=== PATIENT | male | born 1930 | race Caucasian/White ===

== ENCOUNTER 2018-08-27 14:26 | Inpatient (IN) ==
[2018-08-28] MEDS ORDERED: NON-FORMULARY MEDICATION 1 EACH EACH (Oxygen [Oxygen] 1 EACH) SCH (03:15)
[2018-08-28] MEDS: Aspirin Enteric Coated 81 MG Tablet PO SCH (08:38)
[2018-08-28] MEDS: Metoprolol XL (24 HR) Succ 25 MG TAB.ER.24H PO SCH (08:38)
[2018-08-28] MEDS: amLODIPine 5 MG TABLET PO SCH (08:38)
[2018-08-28] MEDS: *HR* Heparin 5,000 UNIT/ML VIAL SQ SCH (08:38)
[2018-08-28] MEDS: Ipratropium/Albuterol Neb 3 ML IH SCH ×3 (08:38→18:13)
--- NOTE | 2018-08-28 11:09 | Internal Med History&Physical ---
Date of Encounter: 08/29/18 Time of Encounter: 11:30 Assessment and Plan (1) CVA (cerebral vascular accident) Current visit: Yes Status: Acute left sided residual weakness and apraxic speech fall risk deconditioned needs PT OT speech therapies Qualifiers: CVA mechanism: unspecified Qualified Code(s): I63.9 - Cerebral infarction, unspecified (2) Hypertension Current visit: Yes Status: Chronic stable continue current medications continue to monitor Qualifiers: Hypertension type: essential hypertension Qualified Code(s): I10 - Essential (primary) hypertension Internal Medicine - H&P: HPI Admitted From: Intrahospital Transfer History of present illness: Mr. Campos is a 88 year old male who is transferred from [facility] for rehabilitation. He has deconditioning. He is status post CVA left-sided. He has weakness and mild speech apraxia. He is on 2-3 L nasal cannula oxygen. He is a fall risk. He was originally at home prior to his stroke. He denies headache or chest pain. He is not eating well but it is also not vomiting. He does have some slow urine stream. He is and has 2 sons. Past Med Surg Social Fam HX - Past Medical History Medical history: arthritis, cardiomyopathy, CHF, COPD, coronary artery disease, CVA, GERD, hypertension, myocardial infarction, renal disease, TIA Additional medical history: anemia, BPH, hital hernia Psychiatric history: no psych history - Past Surgical History Surgical History: non-contributory Additional surgical history: prostate surgery - Social History Smoking Status: Unknown if ever smoked Smokeless Tobacco Status: No Alcohol use: unknown Drug use: unknown Internal Medicine - H&P: Meds Amlodipine Besylate 5 mg PO DAILY 08/28/18 [History] Aspirin Enteric Coated [Aspirin EC] 81 mg PO DAILY 08/28/18 [History] Atorvastatin Calcium [Lipitor] 20 mg PO DAILY 08/28/18 [History] Ipratropium/Albuterol Neb [Duoneb] 3 ml IH Q6HR 08/28/18 [History] Metoprolol Succinate [Toprol Xl] 100 mg PO DAILY 08/28/18 [History] Oxygen 1 each .ROUTE CONT 08/28/18 [History] Pantoprazole Sodium [Protonix] 40 mg PO DAILY 08/28/18 [History] Allergy/AdvReac Type Severity Reaction Status Date / Time Penicillins [PCN] AdvReac Rash Verified 08/27/18 22:24 Sulfa (Sulfonamide AdvReac Rash Verified 08/27/18 22:24 Antibiotics) All Systems PM: A 10-system review of systems was performed and is negative for pertinent findings except as documented above in the HPI. - Constitutional Constitutional: as per HPI - Constitutional Vitals: Temp Pulse Resp BP Pulse Ox 97.5 F L 95 16 138/82 95 08/28/18 08:00 08/28/18 08:00 08/28/18 08:00 08/28/18 08:00 08/28/18 08:00 General appearance: Present: cooperative - Head Head exam: Present: atraumatic - Eye Eye exam: Present: PERRL - ENT ENT exam: Present: mucous membranes dry - Neck Neck exam general surgery: Present: normal inspection - Respiratory Additional comments: clear bilateral - Cardiovascular Additional comments: normal tones distant - GI/Abdominal Additional comments: soft NT slgiht distended - Extremities Exam Extremities exam: Present: normal inspection
[2018-08-28] MEDS: Multivit/Ca/Min/Fe/FA 1 TAB TABLET PO SCH (12:09)
[2018-08-29] MEDS: Ipratropium/Albuterol Neb 3 ML IH SCH ×5 (00:20→23:45)
[2018-08-29] MEDS: Multivit/Ca/Min/Fe/FA 1 TAB TABLET PO SCH (09:56)
[2018-08-29] MEDS: Metoprolol XL (24 HR) Succ 25 MG TAB.ER.24H PO SCH (09:56)
[2018-08-29] MEDS: Aspirin Enteric Coated 81 MG Tablet PO SCH (09:57)
[2018-08-29] MEDS: amLODIPine 5 MG TABLET PO SCH (09:57)
[2018-08-29] MEDS: *HR* Heparin 5,000 UNIT/ML VIAL SQ SCH (09:57)
--- NOTE | 2018-08-29 14:56 | Internal Med Progress Note ---
Date of Encounter: 08/29/18 Time of Encounter: 14:50 - Assessment and plan (1) CVA (cerebral vascular accident) Current Visit: Yes Status: Acute Qualifiers: CVA mechanism: unspecified Qualified Code(s): I63.9 - Cerebral infarction, unspecified (2) Hypertension Current Visit: Yes Status: Chronic Qualifiers: Hypertension type: essential hypertension Qualified Code(s): I10 - Essential (primary) hypertension - Subjective Interval history: Assessment and Plan (1) CVA (cerebral vascular accident) Current visit: Yes Status: Acute left sided residual weakness and apraxic speech fall risk deconditioned ordered PT OT speech therapies wean nasal canula oxygen as tolerated monitor progress Qualifiers: CVA mechanism: unspecified Qualified Code(s): I63.9 - Cerebral infarction, unspecified (2) Hypertension Current visit: Yes Status: Chronic stable continue current medications amlodipine and metoprolol continue to monitor Qualifiers: Hypertension type: essential hypertension Qualified Code(s): I10 - Essential (primary) hypertension Admitted From: Intrahospital Transfer History of present illness: Mr. Campos is a 88 year old male who is transferred from [facility] for rehabilitation. He has deconditioning and diffuculty with ADL. He is status post CVA left-sided. He has weakness and mild speech apraxia. He is a fall risk. He was originally at home prior to his stroke and is . He denies headache or chest pain. He is not eating well but it is also not vomiting. He does have some slow urine stream. MEDS Amlodipine Besylate 5 mg PO DAILY 08/28/18 [History] Aspirin Enteric Coated [Aspirin EC] 81 mg PO DAILY 08/28/18 [History] Atorvastatin Calcium [Lipitor] 20 mg PO DAILY 08/28/18 [History] Ipratropium/Albuterol Neb [Duoneb] 3 ml IH Q6HR 08/28/18 [History] Metoprolol Succinate [Toprol Xl] 100 mg PO DAILY 08/28/18 [History] Oxygen 1 each .ROUTE CONT 08/28/18 [History] Pantoprazole Sodium [Protonix] 40 mg PO DAILY 08/28/18 [History] Allergy/AdvReac Type Severity Reaction Status Date / Time Penicillins [PCN] AdvReac Rash Verified 08/27/18 22:24 Sulfa (Sulfonamide AdvReac Rash Verified 08/27/18 22:24 Antibiotics) - Constitutional Vitals: General appearance: Present: cooperative and calm - Head Head exam: Present: atraumatic - Eye Eye exam: Present: PERRL - ENT ENT exam: Present: mucous membranes dry - Neck Neck exam general surgery: Present: normal inspection - Respiratory Additional comments: clear bilateral - Cardiovascular Additional comments: normal tones distant - GI/Abdominal Additional comments: soft NT slgiht distended - Extremities Exam/neuro Extremities exam: Present: normal inspection weakness 3/5 - Constitutional Vitals: Temp Pulse Resp BP Pulse Ox 97.7 F 61 16 162/79 96 08/29/18 07:00 08/29/18 07:00 08/29/18 07:00 08/29/18 07:00 08/29/18 10:45 General appearance: Present: cooperative Consult Discharge Plan - Plan Referrals: Amado Patton MD [Primary Care Provider] -
[2018-08-30] MEDS: Ipratropium/Albuterol Neb 3 ML IH SCH ×4 (05:51→23:58)
[2018-08-30 06:40] LABS: Basophils # 0.1 K/mcL (0.0-0.2); Basophils % 0.6 %; Eosinophils # 0.5 K/mcL (0.0-0.6); Eosinophils % 5.9 %; Hematocrit 40.4 % (37.5-50.1); Hemoglobin 13.2 g/dL (12.9-16.9); Immature Granulocytes % 0.1 % (0-4); Lymphocytes % 45.2 %; Mean Corpuscular HGB Conc 32.7 g/dL (31.6-35.5); Mean Corpuscular Volume 98.1 fL (83.0-100.0); Monocytes # 0.6 K/mcL (0.0-1.3); Monocytes % 6.7 %; Neutrophils # 3.6 K/mcL (1.6-8.9); Platelet Count 230 K/mcL (140-400); Red Blood Count 4.12 M/mcL (4.19-5.50); Red Cell Distribution Width 13.4 % (11.5-14.5); Segmented Neutrophils % 41.5 %
[2018-08-30 06:50] LABS: Calcium 9.4 mg/dL (8.6-10.3); Potassium 4.4 mEq/L (3.5-5.1)
[2018-08-30] MEDS: amLODIPine 5 MG TABLET PO SCH (08:35)
[2018-08-30] MEDS: Metoprolol XL (24 HR) Succ 25 MG TAB.ER.24H PO SCH (08:37)
[2018-08-30] MEDS: Aspirin Enteric Coated 81 MG Tablet PO SCH (08:37)
[2018-08-30] MEDS: Multivit/Ca/Min/Fe/FA 1 TAB TABLET PO SCH (08:37)
[2018-08-30] MEDS: *HR* Heparin 5,000 UNIT/ML VIAL SQ SCH ×2 (08:40→20:59)
--- NOTE | 2018-08-30 13:49 | Internal Med Progress Note ---
Addendum entered and electronically signed by Moe Scott MD 08/31/18 15:12: I have personally performed a face to face evaluation on this patient. I have r eviewed and agree with the care plan. History and Exam by me shows: The patient was evaluated by me yesterday but the note was not complete. This documentation is being completed today for that reason. Discussed care with other providers and/or nursing. Patient has no complaint of chest discomfort, dyspnea, orthopnea, palpitations, nausea or vomiting, constipation or diarrhea, other changes in bowel habits, difficulty with urination, rash or itching, or other new complaints, except as mentioned above. Review of systems is otherwise negative. Examination: (Except as mentioned above): General: In no apparent distress. Alert and oriented 3. Nondiaphoretic. Head: Atraumatic and normocephalic. Respiratory: No use of accessory muscles. Lungs are clear throughout. Normal airflow. Cardiovascular: Regular rate and rhythm without murmur appreciated. Abdomen: Bowel sounds are normal. No hepatosplenomegaly mass or tenderness appreciated. Obese and therefore difficult to palpate deeply. Extremities: No cyanosis clubbing or edema. Neurologically, he has minimal ataxia of right upper extremity and right lower extremity. His speech tends to trail off at the end of the sentence but is otherwise easily understandable. He has no definite receptive aphasia. There is no facial droop, notable. Skin: Warm and non-diaphoretic with no new lesions noted. Original Note: Date of Encounter: 08/30/18 Time of Encounter: 13:44 - Assessment and plan (1) CVA (cerebral vascular accident) Current Visit: Yes Status: Acute Assessment and plan: Continue PT, OT, speech therapy. Will follow progress. No new neurological deficits at this time. Continue current medication. Follow up with neurologist as scheduled. Qualifiers: CVA mechanism: unspecified Qualified Code(s): I63.9 - Cerebral infarction, unspecified (2) Hypertension Current Visit: Yes Status: Chronic Assessment and plan: Controlled with current medication. Monitor blood pressure. Qualifiers: Hypertension type: essential hypertension Qualified Code(s): I10 - Essential (primary) hypertension - Time Spent With Patient less than 15 minutes - Subjective Interval history: Participating well with therapy. Denies any pain, fever, chills, nausea vomiting or diarrhea. Denies shortness of breath or chest pain. Patient did ambulate 50 feet with contact guard assist with therapy. Continues to be on O2 at 3 L, maintaining saturations greater than 92%. Patient does use oxygen as needed at home. Speech becomes worse and more difficult to understand has patient gets more fatigued. Patient does live home alone. Family lives nearby. Was driving prior to admission. Lost his this past January. - Constitutional Vitals: Temp Pulse Resp BP Pulse Ox 98.5 F 65 16 163/83 94 08/30/18 06:57 08/30/18 06:57 08/30/18 06:57 08/30/18 06:57 08/30/18 10:00 General appearance: Present: cooperative, A&O X 3, pleasant, no acute distress, answers questions appropriately Exam: garbles speech off and on. - Head Head exam: Present: atraumatic, normocephalic - Eye Eye exam: Present: PERRL, conjuntiva pink, sclera anicteric Pupils: Present: PERRL - Neck Neck exam general surgery: Present: supple, trachea midline. Absent: lymphadenopathy - Respiratory Respiratory exam: Present: CTAB. Absent: accessory muscle use, rales, rhonchi, wheezes - Cardiovascular Cardiovascular exam: Present: RRR, +S1, +S2. Absent: diastolic murmur, gallop, rubs, systolic murmur - GI/Abdominal GI/Abdominal exam: Present: normal bowel sounds, soft, no peritoneal signs. Absent: distended, tenderness - Extremities Exam Extremities exam: Present: warm, radial pulses palpable and symmetrical. Absent: calf tenderness, cyanotic, pedal edema Additional comments: left sided weakness. - Neurological Exam Neurological exam: Present: CN II-XII intact, oriented X3, no focal deficits. Absent: pronater drift, facial droop, speech deficit - Skin Skin exam: Present: dry, intact Internal Medicine: Result - Labs CBC & Chem 7: 08/30/18 06:20 08/30/18 06:20 Labs: Short CBC 08/30/18 Range/Units 06:20 WBC 8.8 (4.3-11.1) K/mcL Hgb 13.2 (12.9-16.9) g/dL Hct 40.4 (37.5-50.1) % Plt Count 230 (140-400) K/mcL Neutrophils # 3.6 (1.6-8.9) K/mcL BMP 08/30/18 06:20 Sodium 141 Potassium 4.4 Chloride 102 Carbon Dioxide 32 H BUN 27 H Creatinine 1.40 H Glucose 98 Calcium 9.4 Consult Discharge Plan - Plan Referrals: Amado Patton MD [Primary Care Provider] -
[2018-08-31] MEDS: *HR* Heparin 5,000 UNIT/ML VIAL SQ SCH ×2 (05:36→19:43)
[2018-08-31] MEDS: Ipratropium/Albuterol Neb 3 ML IH SCH ×3 (05:37→17:55)
--- NOTE | 2018-08-31 10:46 | Internal Med Progress Note ---
Addendum entered and electronically signed by Moe Scott MD 08/31/18 15:13: I have personally performed a face to face evaluation on this patient. I have r eviewed and agree with the care plan. History and Exam by me shows: Patient is without complaint except tired with therapy. He feels that there is nothing else that we can do to make him more comfortable here. He states that he has moved his bowels. Discussed care with other providers and/or nursing. Patient has no complaint of chest discomfort, dyspnea, orthopnea, palpitations, nausea or vomiting, constipation or diarrhea, other changes in bowel habits, difficulty with urination, rash or itching, or other new complaints, except as mentioned above. Review of systems is otherwise negative. Examination: (Except as mentioned above): General: In no apparent distress. Alert and oriented 3. Nondiaphoretic. Head: Atraumatic and normocephalic. Respiratory: No use of accessory muscles. Lungs are clear throughout. Normal airflow. Cardiovascular: Regular rate and rhythm without murmur appreciated. Abdomen: Bowel sounds are normal. No hepatosplenomegaly mass or tenderness appr eciated. Obese and therefore difficult to palpate deeply. Patient is examined upright in chair and this also limits exam. Extremities: No cyanosis clubbing or edema. Skin: Warm and non-diaphoretic with no new lesions noted. Original Note: Date of Encounter: 08/31/18 Time of Encounter: 10:44 - Assessment and plan (1) CVA (cerebral vascular accident) Current Visit: Yes Status: Acute Assessment and plan: Continue PT, OT, speech therapy. Will follow progress. No new neurological deficits at this time. Continue current medication. Follow up with neurologist as scheduled. Qualifiers: CVA mechanism: unspecified Qualified Code(s): I63.9 - Cerebral infarction, unspecified (2) Hypertension Current Visit: Yes Status: Chronic Assessment and plan: Controlled with current medication. Monitor blood pressure. Qualifiers: Hypertension type: essential hypertension Qualified Code(s): I10 - Essential (primary) hypertension - Time Spent With Patient less than 15 minutes - Subjective Interval history: Sitting up and chair. Participating well with therapy. States he slept well last night. Denies any pain, fever, chills, nausea vomiting or diarrhea. Denies shortness of breath or chest pain. Patient did ambulate 50 feet with contact guard assist with therapy. Continues to be on O2 at 3 L, maintaining saturations greater than 92%. Patient does use oxygen as needed at home. Speech becomes worse and more difficult to understand has patient gets more fatigued. Patient does live home alone. Family lives nearby. Was driving prior to admission. Lost his this past January. - Constitutional Vitals: Temp Pulse Resp BP Pulse Ox 98.2 F 62 16 146/70 90 08/31/18 07:00 08/31/18 07:00 08/31/18 07:00 08/31/18 07:00 08/31/18 07:00 General appearance: Present: cooperative, A&O X 3, pleasant, no acute distress, answers questions appropriately - Head Head exam: Present: atraumatic, normocephalic - Eye Eye exam: Present: PERRL, conjuntiva pink, sclera anicteric Pupils: Present: PERRL - Neck Neck exam general surgery: Present: supple, trachea midline. Absent: lymphaden opathy - Respiratory Respiratory exam: Present: CTAB. Absent: accessory muscle use, rales, rhonchi, wheezes - Cardiovascular Cardiovascular exam: Present: RRR, +S1, +S2. Absent: diastolic murmur, gallop, rubs, systolic murmur - GI/Abdominal GI/Abdominal exam: Present: normal bowel sounds, soft, no peritoneal signs. Absent: distended, tenderness - Extremities Exam Extremities exam: Present: warm, radial pulses palpable and symmetrical. A bsent: calf tenderness, cyanotic, pedal edema Additional comments: Left-sided weakness - Neurological Exam Neurological exam: Present: CN II-XII intact, oriented X3, no focal deficits. Absent: pronater drift, facial droop, speech deficit - Skin Skin exam: Present: dry, intact Internal Medicine: Result - Labs CBC & Chem 7: 08/30/18 06:20 08/30/18 06:20 Consult Discharge Plan - Plan Referrals: Amado Patton MD [Primary Care Provider] -
[2018-08-31] MEDS: Metoprolol XL (24 HR) Succ 25 MG TAB.ER.24H PO SCH (11:02)
[2018-08-31] MEDS: Multivit/Ca/Min/Fe/FA 1 TAB TABLET PO SCH (11:02)
[2018-08-31] MEDS: Aspirin Enteric Coated 81 MG Tablet PO SCH (11:02)
[2018-08-31] MEDS: amLODIPine 5 MG TABLET PO SCH (11:02)
[2018-09-01] MEDS: Ipratropium/Albuterol Neb 3 ML IH SCH ×4 (01:18→18:32)
[2018-09-01] MEDS: *HR* Heparin 5,000 UNIT/ML VIAL SQ SCH ×2 (04:50→18:32)
[2018-09-01 08:02] LABS: BUN/Creatinine Ratio 20 (6-26); Blood Urea Nitrogen 26 mg/dL (8-23); Calcium 9.1 mg/dL (8.6-10.3); Carbon Dioxide 32 mEq/L (23-29); Chloride 101 mEq/L (98-107); Glucose 96 mg/dL (70-105); Osmolality,Calculated 291 (280-300); Potassium 4.3 mEq/L (3.5-5.1); Sodium 138 mEq/L (136-145); eGFR For Non-African Americans 52 (> 60)
--- NOTE | 2018-09-01 10:06 | Internal Med Progress Note ---
Addendum entered and electronically signed by Moe Scott MD 09/01/18 11:45: I have personally performed a face to face evaluation on this patient. I have r eviewed and agree with the care plan. History and Exam by me shows: Patient feels he is doing well in this is confirmed with therapies. He has been moving his bowels, has no urinary complaints, his breathing is at his baseline and he is otherwise doing well. He is still a flat affect and he was seen by psychologist, as noted. Discussed care with other providers and/or nursing. Patient has no complaint of chest discomfort, dyspnea, orthopnea, palpitations, nausea or vomiting, constipation or diarrhea, other changes in bowel habits, difficulty with urination, rash or itching, or other new complaints, except as mentioned above. Review of systems is otherwise negative. Examination: (Except as mentioned above): General: In no apparent distress. Alert and oriented 3. Nondiaphoretic. He is wearing oxygen at 2 L by nasal cannula. Head: Atraumatic and normocephalic. Respiratory: No use of accessory muscles. Lungs are clear throughout. Normal airflow. Cardiovascular: Regular rate and rhythm without murmur appreciated. Abdomen: Bowel sounds are normal. No hepatosplenomegaly mass or tenderness appreciated. Obese and therefore difficult to palpate deeply. Patient is examin ed upright in chair and this also limits exam. Extremities: No cyanosis clubbing or edema. Skin: Warm and non-diaphoretic with no new lesions noted. Original Note: Date of Encounter: 09/01/18 Time of Encounter: 10:04 - Assessment and plan (1) CVA (cerebral vascular accident) Current Visit: Yes Status: Acute Assessment and plan: Continue PT, OT, speech therapy. Will follow progress. No new neurological deficits at this time. Continue current medication. Follow up with neurologist as scheduled. Qualifiers: CVA mechanism: unspecified Qualified Code(s): I63.9 - Cerebral infarction, unspecified (2) Hypertension Current Visit: Yes Status: Chronic Assessment and plan: Controlled with current medication. Monitor blood pressure. Qualifiers: Hypertension type: essential hypertension Qualified Code(s): I10 - Essential (primary) hypertension - Time Spent With Patient less than 15 minutes - Subjective Interval history: Participating well with therapy. States he slept well last night. c/o off and on Left hip pain, states he has had this for several years and has been told he is in need of a hip replacement. Denies fever, chills, nausea vomiting or diarrhea. Denies shortness of breath or chest pain. Trying to wean oxygen down. Currently maintaining sets greater than 92% at 1 L per nasal cannula. Patient does use oxygen as needed at home. Speech becomes worse and more difficult to understand has patient gets more fatigued. Patient does live home alone. Family lives nearby. Was driving prior to admission. Lost his this past January. - Constitutional Vitals: Temp Pulse Resp BP Pulse Ox 97.4 F L 62 14 182/76 91 09/01/18 07:58 09/01/18 07:58 09/01/18 07:58 09/01/18 07:58 09/01/18 07:58 General appearance: Present: cooperative, A&O X 3, pleasant, no acute distress, answers questions appropriately Exam: garbled speech off and on. - Head Head exam: Present: atraumatic, normocephalic - Eye Eye exam: Present: PERRL, conjuntiva pink, sclera anicteric Pupils: Present: PERRL - Neck Neck exam general surgery: Present: supple, trachea midline. Absent: lymphadenopathy - Respiratory Respiratory exam: Present: CTAB. Absent: accessory muscle use, rales, rhonchi, wheezes - Cardiovascular Cardiovascular exam: Present: RRR, +S1, +S2. Absent: diastolic murmur, gallop, rubs, systolic murmur - GI/Abdominal GI/Abdominal exam: Present: normal bowel sounds, soft, no peritoneal signs. Absent: distended, tenderness - Extremities Exam Extremities exam: Present: warm, radial pulses palpable and symmetrical. Absent: calf tenderness, cyanotic, pedal edema Additional comments: slight weakness LLE. - Neurological Exam Neurological exam: Present: CN II-XII intact, oriented X3, no focal deficits. Absent: pronater drift, facial droop, speech deficit - Skin Skin exam: Present: dry, intact Internal Medicine: Result - Labs CBC & Chem 7: 08/30/18 06:20 09/01/18 07:13 Labs: BMP 09/01/18 07:13 Sodium 138 Potassium 4.3 Chloride 101 Carbon Dioxide 32 H BUN 26 H Creatinine 1.30 Glucose 96 Calcium 9.1 Consult Discharge Plan - Plan Referrals: Amado Patton MD [Primary Care Provider] -
[2018-09-01] MEDS: Metoprolol XL (24 HR) Succ 25 MG TAB.ER.24H PO SCH (11:04)
[2018-09-01] MEDS: amLODIPine 5 MG TABLET PO SCH (11:05)
[2018-09-01] MEDS: Multivit/Ca/Min/Fe/FA 1 TAB TABLET PO SCH (11:05)
[2018-09-01] MEDS: Aspirin Enteric Coated 81 MG Tablet PO SCH (11:05)
--- NOTE | 2018-09-01 11:30 | Psychological Evaluation ---
Date of Encounter: 09/01/18 Time of Encounter: 10:20 History of Present Illness History of present illness: Mr. Campos is a 88 year old male who is transferred from [facility] for rehabilitation. He has deconditioning. He is status post CVA left-sided. He has weakness and mild speech dyspraxia. He is on 2-3 L nasal cannula oxygen. He is a fall risk. He was originally at home prior to his stroke. Past Medical History - Psychiatric History Psychiatric history: Reports: no psych history Home Medications and Allergies Amlodipine Besylate 5 mg PO DAILY 08/28/18 [History] Aspirin Enteric Coated [Aspirin EC] 81 mg PO DAILY 08/28/18 [History] Atorvastatin Calcium [Lipitor] 20 mg PO DAILY 08/28/18 [History] Ipratropium/Albuterol Neb [Duoneb] 3 ml IH Q6HR 08/28/18 [History] Metoprolol Succinate [Toprol Xl] 100 mg PO DAILY 08/28/18 [History] Oxygen 1 each .ROUTE CONT 08/28/18 [History] Pantoprazole Sodium [Protonix] 40 mg PO DAILY 08/28/18 [History] Allergy/AdvReac Type Severity Reaction Status Date / Time Penicillins [PCN] AdvReac Rash Verified 08/27/18 22:24 Sulfa (Sulfonamide AdvReac Rash Verified 08/27/18 22:24 Antibiotics) Social History - Social History Social History: Recent - January 2018 after 67 years of marriage. 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 Sons and grandchildren live close by and are in/out of his home. - Tobacco Use Smoking Status: Never smoker - Alcohol Use Alcohol Use: rarely - Drug Use Drug Use: none Cognitive/Emotional Assessment - Cognitive Ability Level of Alertness: Alert Orientation: Person, Place, Month Ability to Follow Directions: Fair Speech Pattern: Rambling, Mumbled Thought Process: Slowed Thinking Additional Findings: Pt required cuing throughout to continue to engage and attempt requests. 3/3 words after repetition and o/3 after 5 min even with category cuing. 4 digits forward and none backward. Knew president but not past pres. or gov. Not able to perform serial 3's - stating "I'm not very good at mathematics". Insight and jugment are limited. - Emotional Status Mood Description: Depressed Affect Description: Flat Coping Ability: Unsure about ability to cope Assessment & Plan - Prognosis Prognosis: Fair - Treatment Plan Treatment Plan/Recommendations: No further treatment as outpatient discussed evaluating anti-depressant with Jocelyne. Treatment Frequency: none Procedures - Participants Therapy Participant: Patient - Session Time Session Start Time: 10:20 Session Stop Time: 10:50
[2018-09-02] MEDS: Ipratropium/Albuterol Neb 3 ML IH SCH ×4 (01:05→18:18)
[2018-09-02] MEDS: *HR* Heparin 5,000 UNIT/ML VIAL SQ SCH ×2 (05:58→18:18)
[2018-09-02] MEDS: amLODIPine 5 MG TABLET PO SCH (08:18)
[2018-09-02] MEDS: Multivit/Ca/Min/Fe/FA 1 TAB TABLET PO SCH (08:18)
[2018-09-02] MEDS: Metoprolol XL (24 HR) Succ 25 MG TAB.ER.24H PO SCH (08:18)
[2018-09-02] MEDS: Aspirin Enteric Coated 81 MG Tablet PO SCH (08:18)
--- NOTE | 2018-09-02 11:24 | Internal Med Progress Note ---
Date of Encounter: 09/02/18 Time of Encounter: :18 - Assessment and plan (1) CVA (cerebral vascular accident) Current Visit: Yes Status: Acute Assessment and plan: He continues to improve and is doing well with therapy. Plan is discharge to home when appropriate, per therapies. Qualifiers: CVA mechanism: unspecified Qualified Code(s): I63.9 - Cerebral infarction, unspecified (2) Hypertension Current Visit: Yes Status: Chronic Assessment and plan: Marginally controlled will continue current regimen. Qualifiers: Hypertension type: essential hypertension Qualified Code(s): I10 - Essential (primary) hypertension (3) COPD (chronic obstructive pulmonary disease) Current Visit: Yes Status: Acute Assessment and plan: This is stable per patient and clinically. Patient is oxygen dependent. Qualifiers: COPD type: emphysema Emphysema type: unspecified Qualified Code(s): J43.9 - Emphysema, unspecified - Subjective Interval history: Patient is without complaint. He is tired with therapy but pleased with his progress. He denies other issues. He states that his bowels or bladder or movi ng well. Patient has no complaint of chest discomfort, dyspnea, orthopnea, palpitations, nausea or vomiting, constipation or diarrhea, other changes in bowel habits, difficulty with urination, rash or itching, or other new complaints, except as mentioned above. Review of systems is otherwise negative. I discussed management of her care with nursing staff. - Constitutional Vitals: Temp Pulse Resp BP Pulse Ox 98.1 F 59 15 136/69 91 09/02/18 07:00 09/02/18 07:00 09/02/18 07:00 09/02/18 07:00 09/02/18 07:00 Exam: Examination: (Except as mentioned above): General: In no apparent distress. Alert and oriented 3. Nondiaphoretic. On oxygen by 2 L nasal cannula. Head: Atraumatic and normocephalic. Respiratory: No use of accessory muscles. Lungs are clear throughout. Normal airflow. Cardiovascular: Regular rate and rhythm without murmur appreciated. Abdomen: Bowel sounds are normal. No hepatosplenomegaly mass or tenderness appreciated. Obese and therefore difficult to palpate deeply. Extremities: No cyanosis clubbing or edema. Skin: Warm and non-diaphoretic with no new lesions noted. Internal Medicine: Result - Labs CBC & Chem 7: 08/30/18 06:20 09/01/18 07:13 Consult Discharge Plan - Plan Referrals: Amado Patton MD [Primary Care Provider] -
[2018-09-03] MEDS: Ipratropium/Albuterol Neb 3 ML IH SCH ×6 (00:12→23:27)
[2018-09-03] MEDS: *HR* Heparin 5,000 UNIT/ML VIAL SQ SCH ×2 (05:40→17:02)
--- NOTE | 2018-09-03 07:44 | Internal Med Progress Note ---
Addendum entered and electronically signed by Moe Scott MD 09/03/18 12:19: I have personally performed a face to face evaluation on this patient. I have r eviewed and agree with the care plan. History and Exam by me shows: Patient had a large bowel movement last night and is otherwise without complaint. He is eating well, pleased that his diet has been advanced, and has no dyspnea, even without oxygen. He is pleased with his therapy. Discussed care with other providers and/or nursing. Patient has no complaint of chest discomfort, dyspnea, orthopnea, palpitations, nausea or vomiting, constipation or diarrhea, other changes in bowel habits, difficulty with urination, rash or itching, or other new complaints, except as mentioned above. Review of systems is otherwise negative. Examination: (Except as mentioned above): General: In no apparent distress. Alert and oriented 3. Nondiaphoretic. He is on room air. He still has mumbled words at the end of sentences, especially with a complex sentence. Head: Atraumatic and normocephalic. Respiratory: No use of accessory muscles. Lungs are clear throughout. Normal airflow. Cardiovascular: Regular rate and rhythm without murmur appreciated. Abdomen: Bowel sounds are normal. No hepatosplenomegaly mass or tenderness appreciated. Obese and therefore difficult to palpate deeply. Patient is examined upright in chair and this also limits exam. Extremities: No cyanosis clubbing or edema. Skin: Warm and non-diaphoretic with no new lesions noted. Original Note: Date of Encounter: 09/03/18 Time of Encounter: 07:41 - Assessment and plan (1) CVA (cerebral vascular accident) Current Visit: Yes Status: Acute Assessment and plan: No acute neurological changes noted on exam. Patient continues with slight right hemiparesis and slight right facial droop. Patient continues to have a mumbling type speech pattern but is appropriate when answering simple questions. We will continue with speech therapy. Patient reportedly is progressing well with physical therapy. We will repeat labs in the morning. We will continue with current plan of care. Qualifiers: CVA mechanism: unspecified Qualified Code(s): I63.9 - Cerebral infarction, unspecified (2) Hypertension Current Visit: Yes Status: Chronic Assessment and plan: No acute issues. Patient's blood pressures remained stable. We will continue with current medications. Qualifiers: Hypertension type: essential hypertension Qualified Code(s): I10 - Essential (primary) hypertension (3) COPD (chronic obstructive pulmonary disease) Current Visit: Yes Status: Acute Assessment and plan: No acute issues. Patient respiratory effort appears relaxed. Noted fine posterior bibasilar rales. No productive cough. No hypoxia. We will continue with current medications and bronchodilators. Qualifiers: COPD type: emphysema Emphysema type: unspecified Qualified Code(s): J43.9 - Emphysema, unspecified - Subjective Interval history: Patient appears relaxed and currently denies any discomforts or shortness of breath. Patient continues to have a mumbling type speech effort and at times is difficult to understand. Urged to speak slowly and pronounced patient is appropriate with his speech. - Constitutional Vitals: Temp Pulse Resp BP Pulse Ox 98.2 F 59 18 128/71 91 09/02/18 19:00 09/02/18 19:00 09/02/18 19:00 09/02/18 19:00 09/02/18 22:07 General appearance: Present: cooperative, A&O X 3, pleasant, no acute distress, answers questions appropriately Exam: Patient continues to have a mumbling type speech pattern, which clears when encouraged to use speaks slow and pronounces orders. Patient is appropriate with answering answers to simple questions. Patient follow complex directions. - Head Head exam: Present: atraumatic, normocephalic - Eye Eye exam: Present: PERRL, conjuntiva pink, sclera anicteric Pupils: Present: PERRL - Neck Neck exam general surgery: Present: supple, trachea midline. Absent: lymphadenopathy - Respiratory Respiratory exam: Present: CTAB. Absent: accessory muscle use, rales, rhonchi, wheezes Additional comments: Lungs are clear throughout upper [place] with noticed diminished breath sounds and fine posterior bibasilar rales. Respiratory effort appears relaxed. No productive cough. - Cardiovascular Cardiovascular exam: Present: RRR, +S1, +S2. Absent: diastolic murmur, gallop, rubs, systolic murmur - GI/Abdominal GI/Abdominal exam: Present: normal bowel sounds, soft, no peritoneal signs. Absent: distended, tenderness - Extremities Exam Extremities exam: Present: warm, radial pulses palpable and symmetrical. Absent: calf tenderness, cyanotic, pedal edema - Neurological Exam Neurological exam: Present: CN II-XII intact, oriented X3. Absent: pronater d rift, facial droop, speech deficit Additional comments: Patient continues to have left facial droop. Denies any paresthesia. Tongue remains midline. Right extremities with muscle strength +4/5 and left extremities are 5/5. Right dorsiflexion remains at 4/5 and patient currently has a brace in place. - Skin Skin exam: Present: dry, intact Internal Medicine: Result - Labs CBC & Chem 7: 08/30/18 06:20 09/01/18 07:13 Consult Discharge Plan - Plan Referrals: Amado Patton MD [Primary Care Provider] -
[2018-09-03] MEDS: Metoprolol XL (24 HR) Succ 25 MG TAB.ER.24H PO SCH (07:56)
[2018-09-03] MEDS: amLODIPine 5 MG TABLET PO SCH (07:56)
[2018-09-03] MEDS: Multivit/Ca/Min/Fe/FA 1 TAB TABLET PO SCH (07:57)
[2018-09-03] MEDS: Aspirin Enteric Coated 81 MG Tablet PO SCH (07:57)
[2018-09-04] MEDS: Ipratropium/Albuterol Neb 3 ML IH SCH ×3 (05:45→18:46)
[2018-09-04 05:46] LABS: Hematocrit 36.3 % (37.5-50.1); Hemoglobin 12.1 g/dL (12.9-16.9); Mean Corpuscular HGB Conc 33.3 g/dL (31.6-35.5); Mean Corpuscular Hemoglobin 31.8 pg (28.0-33.3); Mean Corpuscular Volume 95.5 fL (83.0-100.0); Mean Platelet Volume 10.2 fL (9.4-12.4); Platelet Count 216 K/mcL (140-400)
[2018-09-04] MEDS: *HR* Heparin 5,000 UNIT/ML VIAL SQ SCH ×2 (05:46→18:46)
[2018-09-04 06:08] LABS: Albumin 3.7 g/dL (3.5-5.7); Albumin/Globulin Ratio 1.6 (1.1-2.2); Bilirubin,Total 0.3 mg/dL (0.3-1.0); Calcium 9.2 mg/dL (8.6-10.3); Globulin 2.3 g/dL (2.4-3.5); Magnesium 1.8 mg/dL (1.6-2.6); Potassium 4.2 mEq/L (3.5-5.1)
[2018-09-04] MEDS: Multivit/Ca/Min/Fe/FA 1 TAB TABLET PO SCH (08:27)
[2018-09-04] MEDS: Metoprolol XL (24 HR) Succ 25 MG TAB.ER.24H PO SCH (08:28)
[2018-09-04] MEDS: Aspirin Enteric Coated 81 MG Tablet PO SCH (08:28)
[2018-09-04] MEDS: amLODIPine 5 MG TABLET PO SCH (08:28)
[2018-09-04] MEDS ORDERED: cloNIDine HCl 0.1 MG TABLET PO PRN (09:35)
--- NOTE | 2018-09-04 10:20 | Internal Med Progress Note ---
Date of Encounter: 09/04/18 Time of Encounter: 10:18 - Assessment and plan (1) CVA (cerebral vascular accident) Current Visit: Yes Status: Acute Assessment and plan: He continues to show improvement and is participating well with therapy. We will continue on, as planned. Qualifiers: CVA mechanism: unspecified Qualified Code(s): I63.9 - Cerebral infarction, unspecified (2) Hypertension Current Visit: Yes Status: Chronic Assessment and plan: Marginally controlled will continue current regimen. I have added when necessary clonidine. We will follow and consider elevation of medication, if necessary. Qualifiers: Hypertension type: essential hypertension Qualified Code(s): I10 - Essential (primary) hypertension (3) COPD (chronic obstructive pulmonary disease) Current Visit: Yes Status: Acute Assessment and plan: This is stable per patient and clinically. Patient is oxygen dependent, intermittently. Qualifiers: COPD type: emphysema Emphysema type: unspecified Qualified Code(s): J43.9 - Emphysema, unspecified - Subjective Interval history: Patient is without complaint except that he could not sleep with his roommate and requests a different room. Nursing will move him to a different location, sometimes today. He has no other complaints. He wants to go home, soon, and asks about when he can go. Nursing notes that he became desaturated with his psychotherapy and requires ox ygen supplementation. This is typical for patient and I do not believe this is an acute clinical change. Patient has no complaint of chest discomfort, dyspnea, orthopnea, palpitations, nausea or vomiting, constipation or diarrhea, other changes in bowel habits, difficulty with urination, rash or itching, or other new complaints, except as mentioned above. Review of systems is otherwise negative. I discussed management of her care with nursing staff. - Constitutional Vitals: Temp Pulse Resp BP Pulse Ox 98.4 F 62 18 181/89 88 09/04/18 08:11 09/04/18 08:11 09/04/18 08:11 09/04/18 08:11 09/04/18 08:11 Exam: Examination: (Except as mentioned above): General: In no apparent distress. Alert and oriented 3. Nondiaphoretic. He is not currently on oxygen. Head: Atraumatic and normocephalic. Respiratory: No use of accessory muscles. Lungs are clear throughout. Normal airflow. Cardiovascular: Regular rate and rhythm without murmur appreciated. Abdomen: Bowel sounds are normal. No hepatosplenomegaly mass or tenderness appreciated. Obese and therefore difficult to palpate deeply. Patient is examined upright in chair and this also limits exam. Extremities: No cyanosis clubbing or edema. Skin: Warm and non-diaphoretic with no new lesions noted. Internal Medicine: Result - Labs CBC & Chem 7: 09/04/18 05:30 09/04/18 05:30 Labs: Short CBC 09/04/18 Range/Units 05:30 WBC 6.8 (4.3-11.1) K/mcL Hgb 12.1 L (12.9-16.9) g/dL Hct 36.3 L (37.5-50.1) % Plt Count 216 (140-400) K/mcL BMP 09/04/18 05:30 Sodium 134 L Potassium 4.2 Chloride 100 Carbon Dioxide 30 H BUN 31 H Creatinine 1.58 H Glucose 99 Calcium 9.2 Liver Function 09/04/18 Range/Units 05:30 Total Bilirubin 0.3 (0.3-1.0) mg/dL AST 12 L (13-39) Units/L ALT 9 (7-52) Units/L Alkaline Phosphatase 49 (34-104) Units/L Albumin 3.7 (3.5-5.7) g/dL Consult Discharge Plan - Plan Referrals: Amado Patton MD [Primary Care Provider] -
[2018-09-05] MEDS: Ipratropium/Albuterol Neb 3 ML IH SCH ×4 (00:30→18:15)
[2018-09-05] MEDS: *HR* Heparin 5,000 UNIT/ML VIAL SQ SCH ×2 (06:05→18:15)
[2018-09-05] MEDS: Metoprolol XL (24 HR) Succ 25 MG TAB.ER.24H PO SCH (08:38)
[2018-09-05] MEDS: Aspirin Enteric Coated 81 MG Tablet PO SCH (08:38)
[2018-09-05] MEDS: amLODIPine 5 MG TABLET PO SCH (08:39)
[2018-09-05] MEDS: Multivit/Ca/Min/Fe/FA 1 TAB TABLET PO SCH (08:39)
--- NOTE | 2018-09-05 10:13 | Internal Med Progress Note ---
Addendum entered and electronically signed by Moe Scott MD 09/05/18 13:46: I have personally performed a face to face evaluation on this patient. I have r eviewed and agree with the care plan. History and Exam by me shows: The patient has no complaints. He states that his bowel has moved well. He wants to go home and I told him that we would investigate, tomorrow. Discussed care with other providers and/or nursing. Patient has no complaint of chest discomfort, dyspnea, orthopnea, palpitations, nausea or vomiting, constipation or diarrhea, other changes in bowel habits, difficulty with urination, rash or itching, or other new complaints, except as mentioned above. Review of systems is otherwise negative. Examination: (Except as mentioned above): General: In no apparent distress. Alert and oriented 3. Nondiaphoretic. He is not on oxygen at this time. Head: Atraumatic and normocephalic. Respiratory: No use of accessory muscles. Lungs are clear throughout. Normal airflow. Cardiovascular: Regular rate and rhythm without murmur appreciated. Abdomen: Bowel sounds are normal. No hepatosplenomegaly mass or tenderness appreciated. Obese and therefore difficult to palpate deeply. Extremities: No cyanosis clubbing or edema. Skin: Warm and non-diaphoretic with no new lesions noted. Original Note: Date of Encounter: 09/05/18 Time of Encounter: 10:11 - Assessment and plan (1) CVA (cerebral vascular accident) Current Visit: Yes Status: Acute Assessment and plan: No acute neurological changes noted on exam. Patient continues with slight right hemiparesis and slight right facial droop. Patient continues to have a mumbling type speech pattern but is appropriate when answering simple questions. We will continue with speech therapy. Patient reportedly is progressing well with physical therapy. We will repeat labs in the morning. We will continue with current plan of care. Qualifiers: CVA mechanism: unspecified Qualified Code(s): I63.9 - Cerebral infarction, unspecified (2) Hypertension Current Visit: Yes Status: Chronic Assessment and plan: No acute issues. Patient's blood pressures remained stable. We will continue with current medications. Qualifiers: Hypertension type: essential hypertension Qualified Code(s): I10 - Essential (primary) hypertension (3) COPD (chronic obstructive pulmonary disease) Current Visit: Yes Status: Acute Assessment and plan: No acute issues. Patient respiratory effort appears relaxed. Noted fine posterior bibasilar rales. No productive cough. No hypoxia. We will continue with current medications and bronchodilators. Qualifiers: COPD type: emphysema Emphysema type: unspecified Qualified Code(s): J43.9 - Emphysema, unspecified - Time Spent With Patient less than 15 minutes - Subjective Interval history: Patient appears relaxed and currently denies any discomforts or shortness of breath. Patient continues to have a mumbling type speech effort and at times is difficult to understand. Urged to speak slowly and pronounced patient is appropriate with his speech. Noted flat affect. - Constitutional Vitals: Temp Pulse Resp BP Pulse Ox 98.2 F 67 18 162/92 90 09/05/18 08:00 09/05/18 08:00 09/05/18 08:00 09/05/18 08:00 09/04/18 20:25 General appearance: Present: cooperative, A&O X 3, pleasant, no acute distress, answers questions appropriately - Head Head exam: Present: atraumatic, normocephalic - Eye Eye exam: Present: PERRL, conjuntiva pink, sclera anicteric Pupils: Present: PERRL - Neck Neck exam general surgery: Present: supple, trachea midline. Absent: lymphadenopathy - Respiratory Respiratory exam: Present: CTAB. Absent: accessory muscle use, rales, rhonchi, wheezes - Cardiovascular Cardiovascular exam: Present: RRR, +S1, +S2. Absent: diastolic murmur, gallop, rubs, systolic murmur - GI/Abdominal GI/Abdominal exam: Present: normal bowel sounds, soft, no peritoneal signs. Absent: distended, tenderness - Extremities Exam Extremities exam: Present: warm, radial pulses palpable and symmetrical. Absent: calf tenderness, cyanotic, pedal edema - Neurological Exam Neurological exam: Present: CN II-XII intact, oriented X3, facial droop. Absent: pronater drift, speech deficit Additional comments: No acute issues. Patient continues to have very slight hemiparesis on the right with 4+/5 muscle strength. Both extremities are 5/5 muscle strength. No decreased sensation noted. Continued slight right facial droop. Tongue remains midline. Patient continues to have mumbling type speech - Skin Skin exam: Present: dry, intact Internal Medicine: Result - Labs CBC & Chem 7: 09/04/18 05:30 09/04/18 05:30 Consult Discharge Plan - Plan Referrals: Amado Patton MD [Primary Care Provider] -
[2018-09-06] MEDS: Ipratropium/Albuterol Neb 3 ML IH SCH ×5 (01:10→22:55)
[2018-09-06] MEDS: *HR* Heparin 5,000 UNIT/ML VIAL SQ SCH ×2 (05:51→17:24)
[2018-09-06 06:05] LABS: Calcium 9.6 mg/dL (8.6-10.3); Potassium 4.6 mEq/L (3.5-5.1)
[2018-09-06 06:51] LABS: Basophils % 0.4 %; Eosinophils # 0.4 K/mcL (0.0-0.6); Eosinophils % 5.1 %; Hematocrit 36.8 % (37.5-50.1); Hemoglobin 12.3 g/dL (12.9-16.9); Immature Granulocytes % 0.1 % (0-4); Lymphocytes # 3.3 K/mcL (0.6-4.6); Lymphocytes % 44.5 %; Mean Corpuscular HGB Conc 33.4 g/dL (31.6-35.5); Mean Corpuscular Hemoglobin 32.1 pg (28.0-33.3); Mean Corpuscular Volume 96.1 fL (83.0-100.0); Mean Platelet Volume 10.1 fL (9.4-12.4); Monocytes # 0.7 K/mcL (0.0-1.3); Monocytes % 9.6 %; Platelet Count 225 K/mcL (140-400); Red Blood Count 3.83 M/mcL (4.19-5.50); Segmented Neutrophils % 40.3 %
[2018-09-06] MEDS: Multivit/Ca/Min/Fe/FA 1 TAB TABLET PO SCH (09:00)
[2018-09-06] MEDS: amLODIPine 5 MG TABLET PO SCH (09:00)
[2018-09-06] MEDS: Aspirin Enteric Coated 81 MG Tablet PO SCH (09:01)
[2018-09-06] MEDS: Metoprolol XL (24 HR) Succ 25 MG TAB.ER.24H PO SCH (09:02)
--- NOTE | 2018-09-06 10:53 | Internal Med Progress Note ---
Addendum entered and electronically signed by Moe Scott MD 09/06/18 11:56: I have personally performed a face to face evaluation on this patient. I have r eviewed and agree with the care plan. History and Exam by me shows: Patient wants to go home today. He denies problems. He states his bowels are moving well. He denies dyspnea or chest discomfort, etc. I told him that therapy staff feels it is better for her family to have education and target date for discharge is Thursday. He is disappointed but except. After multiple attempts to see him in his room, his therapy was interrupted and he was seen there. Discussed care with other providers and/or nursing. Patient has no complaint of chest discomfort, dyspnea, orthopnea, palpitations, nausea or vomiting, constipation or diarrhea, other changes in bowel habits, difficulty with urination, rash or itching, or other new complaints, except as mentioned above. Review of systems is otherwise negative. Examination: (Except as mentioned above): General: In no apparent distress. Alert and oriented 3. Nondiaphoretic. He is not on oxygen at this time. Head: Atraumatic and normocephalic. Respiratory: No use of accessory muscles. Lungs are clear throughout. Normal airflow. Cardiovascular: Regular rate and rhythm without murmur appreciated. Abdomen: Bowel sounds are normal. No hepatosplenomegaly mass or tenderness appreciated. Obese and therefore difficult to palpate deeply. Patient is examined upright in chair and this also limits exam. Extremities: No cyanosis clubbing or edema. Skin: Warm and non-diaphoretic with no new lesions noted. Original Note: Date of Encounter: 09/06/18 Time of Encounter: 10:50 - Assessment and plan (1) CVA (cerebral vascular accident) Current Visit: Yes Status: Acute Assessment and plan: Continue PT, OT, speech therapy. Will follow progress. No new neurological deficits at this time. Continue current medication. Follow up with neurologist as scheduled. Qualifiers: CVA mechanism: unspecified Qualified Code(s): I63.9 - Cerebral infarction, unspecified (2) Hypertension Current Visit: Yes Status: Chronic Assessment and plan: Controlled with current medication. Monitor blood pressure. Qualifiers: Hypertension type: essential hypertension Qualified Code(s): I10 - Essential (primary) hypertension - Time Spent With Patient less than 15 minutes - Subjective Interval history: Participating well with therapy. Denies fever, chills, nausea vomiting or diarrhea. Denies shortness of breath or chest pain. Trying to wean oxygen down. maintaining O2 sats >92R% on RA. Patient does live home alone. Family lives nearby. Was driving prior to admission. Lost his this past January. - Constitutional Vitals: Temp Pulse Resp BP Pulse Ox 98.0 F 71 16 157/89 93 09/06/18 08:00 09/06/18 08:00 09/06/18 08:00 09/06/18 08:00 09/05/18 20:38 General appearance: Present: cooperative, A&O X 3, pleasant, no acute distress, answers questions appropriately - Head Head exam: Present: atraumatic, normocephalic - Eye Eye exam: Present: PERRL, conjuntiva pink, sclera anicteric Pupils: Present: PERRL - Neck Neck exam general surgery: Present: supple, trachea midline. Absent: lymphadenopathy - Respiratory Respiratory exam: Present: CTAB. Absent: accessory muscle use, rales, rhonchi, wheezes - Cardiovascular Cardiovascular exam: Present: RRR, +S1, +S2. Absent: diastolic murmur, gallop, rubs, systolic murmur - GI/Abdominal GI/Abdominal exam: Present: normal bowel sounds, soft, no peritoneal signs. Absent: distended, tenderness - Extremities Exam Extremities exam: Present: warm, radial pulses palpable and symmetrical. Absent: calf tenderness, cyanotic, pedal edema - Neurological Exam Neurological exam: Present: CN II-XII intact, oriented X3, no focal deficits. Absent: pronater drift, facial droop, speech deficit - Skin Skin exam: Present: dry, intact Internal Medicine: Result - Labs CBC & Chem 7: 09/06/18 06:50 09/06/18 05:45 Labs: Short CBC 09/06/18 Range/Units 06:50 WBC 7.4 (4.3-11.1) K/mcL Hgb 12.3 L (12.9-16.9) g/dL Hct 36.8 L (37.5-50.1) % Plt Count 225 (140-400) K/mcL Neutrophils # 3.0 (1.6-8.9) K/mcL BMP 09/06/18 05:45 Sodium 136 Potassium 4.6 Chloride 100 Carbon Dioxide 31 H BUN 29 H Creatinine 1.51 H Glucose 103 Calcium 9.6 Consult Discharge Plan - Plan Referrals: Amado Patton MD [Primary Care Provider] -
[2018-09-07] MEDS: *HR* Heparin 5,000 UNIT/ML VIAL SQ SCH ×2 (05:09→18:30)
[2018-09-07] MEDS: Ipratropium/Albuterol Neb 3 ML IH SCH ×3 (05:09→18:01)
[2018-09-07] MEDS: Multivit/Ca/Min/Fe/FA 1 TAB TABLET PO SCH (08:11)
[2018-09-07] MEDS: Metoprolol XL (24 HR) Succ 25 MG TAB.ER.24H PO SCH (08:11)
[2018-09-07] MEDS: Aspirin Enteric Coated 81 MG Tablet PO SCH (08:12)
[2018-09-07] MEDS: amLODIPine 5 MG TABLET PO SCH (08:12)
--- NOTE | 2018-09-07 10:37 | Internal Med Progress Note ---
Addendum entered and electronically signed by Moe Scott MD 09/07/18 12:55: I have personally performed a face to face evaluation on this patient. I have r eviewed and agree with the care plan. History and Exam by me shows: Patient is without acute complaint. He states that he is doing well. He is eating well, even though he states that food does not affect good. Bowels moved. He is urinating fine. He has no other acute issues. Discussed care with other providers and/or nursing. Patient has no complaint of chest discomfort, dyspnea, orthopnea, palpitations, nausea or vomiting, constipation or diarrhea, other changes in bowel habits, d ifficulty with urination, rash or itching, or other new complaints, except as mentioned above. Review of systems is otherwise negative. Examination: (Except as mentioned above): General: In no apparent distress. Alert and oriented 3. Nondiaphoretic. Head: Atraumatic and normocephalic. Respiratory: No use of accessory muscles. Lungs are clear throughout. Normal airflow. Cardiovascular: Regular rate and rhythm without murmur appreciated. Abdomen: Bowel sounds are normal. No hepatosplenomegaly mass or tenderness appreciated. Obese and therefore difficult to palpate deeply. Patient is e xamined upright in chair and this also limits exam. Extremities: No cyanosis clubbing or edema. Skin: Warm and non-diaphoretic with no new lesions noted. Plan discharge home tomorrow. Family is being trained in our preparing to care for him at home. Original Note: Date of Encounter: 09/07/18 Time of Encounter: 10:35 - Assessment and plan (1) CVA (cerebral vascular accident) Current Visit: Yes Status: Acute Assessment and plan: Continue PT, OT, speech therapy. Will follow progress. No new neurological deficits at this time. Continue current medication. Follow up with neurologist as scheduled. Qualifiers: CVA mechanism: unspecified Qualified Code(s): I63.9 - Cerebral infarction, unspecified (2) Hypertension Current Visit: Yes Status: Chronic Assessment and plan: Controlled with current medication. Monitor blood pressure. Qualifiers: Hypertension type: essential hypertension Qualified Code(s): I10 - Essential (primary) hypertension - Time Spent With Patient less than 15 minutes - Subjective Interval history: Participating well with therapy. Denies fever, chills, nausea vomiting or diarrhea. Denies shortness of breath or chest pain. maintaining O2 sats >92R% on RA. family present during exam. - Constitutional Vitals: Temp Pulse Resp BP Pulse Ox 97.9 F 61 16 134/66 90 09/07/18 07:00 09/07/18 07:00 09/07/18 07:00 09/07/18 07:00 09/07/18 07:00 General appearance: Present: cooperative, A&O X 3, pleasant, no acute distress, answers questions appropriately Exam: slight right facial droop and garbled speech. - Head Head exam: Present: atraumatic, normocephalic - Eye Eye exam: Present: PERRL, conjuntiva pink, sclera anicteric Pupils: Present: PERRL - Neck Neck exam general surgery: Present: supple, trachea midline. Absent: lymphadenopathy - Respiratory Respiratory exam: Present: CTAB. Absent: accessory muscle use, rales, rhonchi, wheezes - Cardiovascular Cardiovascular exam: Present: RRR, +S1, +S2. Absent: diastolic murmur, gallop, rubs, systolic murmur - GI/Abdominal GI/Abdominal exam: Present: normal bowel sounds, soft, no peritoneal signs. Absent: distended, tenderness - Extremities Exam Extremities exam: Present: warm, radial pulses palpable and symmetrical. Absent: calf tenderness, cyanotic, pedal edema - Neurological Exam Neurological exam: Present: CN II-XII intact, oriented X3, no focal deficits. A bsent: pronater drift, facial droop, speech deficit - Skin Skin exam: Present: dry, intact Internal Medicine: Result - Labs CBC & Chem 7: 09/06/18 06:50 09/06/18 05:45 Consult Discharge Plan - Plan Referrals: Amado Patton MD [Primary Care Provider] -
[2018-09-08] MEDS: Ipratropium/Albuterol Neb 3 ML IH SCH ×2 (00:01→05:13)
[2018-09-08] MEDS: *HR* Heparin 5,000 UNIT/ML VIAL SQ SCH (05:13)
[2018-09-08 07:06] VITALS: BP 156/72
[2018-09-08] MEDS: Multivit/Ca/Min/Fe/FA 1 TAB TABLET PO SCH (08:19)
[2018-09-08] MEDS: Aspirin Enteric Coated 81 MG Tablet PO SCH (08:20)
[2018-09-08] MEDS: Metoprolol XL (24 HR) Succ 25 MG TAB.ER.24H PO SCH (08:20)
[2018-09-08] MEDS: amLODIPine 5 MG TABLET PO SCH (08:20)
--- NOTE | 2018-09-08 09:37 | Discharge Summary ---
Addendum entered and electronically signed by Moe Scott MD 09/08/18 11:43: I have personally performed a face to face evaluation on this patient. I have r eviewed and agree with the care plan. History and Exam by me shows: Patient is without complaint. He is excited to be going home. Breathing is going just fine. He states that his bowels been a little more constipated the last day or 2. I encouraged him, in front of his sons, to have a bowel movement at least every other day. I suggested he use MiraLAX as needed. Discussed care with other providers and/or nursing. Patient has no complaint of chest discomfort, dyspnea, orthopnea, palpitations, nausea or vomiting, constipation or diarrhea, other changes in bowel habits, difficulty with urination, rash or itching, or other new complaints, except as mentioned above. Review of systems is otherwise negative. Examination: (Except as mentioned above): General: In no apparent distress. Alert and oriented 3. Nondiaphoretic. Head: Atraumatic and normocephalic. Respiratory: No use of accessory muscles. Lungs are clear throughout. Normal airflow. Cardiovascular: Regular rate and rhythm without murmur appreciated. Abdomen: Bowel sounds are normal. No hepatosplenomegaly mass or tenderness appreciated. Obese and therefore difficult to palpate deeply. Patient is examined upright in chair and this also limits exam. Extremities: No cyanosis clubbing or edema. Skin: Warm and non-diaphoretic with no new lesions noted. Original Note: Orders not resulted at time of discharge: Pending orders 09/27/18 04:00 BMP [Basic Metabolic Panel] MO Complete Blood Count [HEME] MO 10/04/18 04:00 BMP [Basic Metabolic Panel] MO Complete Blood Count [HEME] MO 10/11/18 04:00 BMP [Basic Metabolic Panel] MO Complete Blood Count [HEME] MO 10/18/18 04:00 BMP [Basic Metabolic Panel] MO Complete Blood Count [HEME] MO 10/25/18 04:00 BMP [Basic Metabolic Panel] MO Complete Blood Count [HEME] MO 11/01/18 04:00 BMP [Basic Metabolic Panel] MO Complete Blood Count [HEME] MO 09/13/18 04:00 BMP [Basic Metabolic Panel] MO Complete Blood Count [HEME] MO 09/20/18 04:00 BMP [Basic Metabolic Panel] MO Complete Blood Count [HEME] MO Date of Encounter: 09/08/18 Time of Encounter: 09:35 - Discharge Diagnosis (1) CVA (cerebral vascular accident) Priority: Primary Status: Acute Comments: improving. no new neurological deficits. continue HH PT, OT and ST. modified barium swallow ordered as outpatient. f/u with neurologist Qualifiers: CVA mechanism: unspecified Qualified Code(s): I63.9 - Cerebral infarction, unspecified (2) Hypertension Priority: Secondary Status: Chronic Comments: controlled with current meds. monitor BP, F/u with PCP. Qualifiers: Hypertension type: essential hypertension Qualified Code(s): I10 - Essential (primary) hypertension Hospital course: Mr. Campos is a 88 year old male discharging to home with 24 hr supervision provided by family. no new neurological deficits. continues to have garbles speech off and on. set up for modified barium swallow as outpatient. denies any complaints or questions at this time. states "ready to go home". maintaining appetite and hydration. last BM was yesterday. Discharge discussed with: patient, family, nurse, social work - Time Spent with Patient Total time spent providing and/or coordinating discharge services: Less than 30 minutes - Discharge Medications Home Medications: Amlodipine Besylate 5 mg PO DAILY 08/28/18 [History] Aspirin Enteric Coated [Aspirin EC] 81 mg PO DAILY 08/28/18 [History] Atorvastatin Calcium [Lipitor] 20 mg PO DAILY 08/28/18 [History] Ipratropium/Albuterol Neb [Duoneb] 3 ml IH Q6HR 08/28/18 [History] Metoprolol Succinate [Toprol Xl] 100 mg PO DAILY 08/28/18 [History] Oxygen 1 each .ROUTE CONT 08/28/18 [History] Pantoprazole Sodium [Protonix] 40 mg PO DAILY 08/28/18 [History] Multivit/Ca/Min/Fe/FA [Thera M Plus] 1 tab PO DAILY tablet 09/08/18 [Rx] Sertraline [Zoloft] 50 mg PO DAILY tablet 09/08/18 [Rx] Allergies/Adverse Reactions: Allergy/AdvReac Type Severity Reaction Status Date / Time Penicillins [PCN] AdvReac Rash Verified 08/27/18 22:24 Sulfa (Sulfonamide AdvReac Rash Verified 08/27/18 22:24 Antibiotics) Date of admission: 08/27/18 21:53 Primary care physician: Amado Patton MD Consults: 08/28/18 00:11 Consult to Occupational Therapy [CONS] Routine Comment: Evaluate, develop and implement POC Reason for Consult: Evaluate and treat Does patient have active BEDREST order?: No Is patient medically & hemodynamically stable?: Yes Patient assessed for mobility or mobilized this visit?: Yes Consult to Physical Therapy [CONS] Routine Comment: Evaluate, develop and implement POC Reason for Consult: Evaluate and treat. Does patient have active BEDREST order?: No Is patient medically & hemodynamically stable?: Yes Patient assessed for mobility or mobilized this visit?: Yes Consult to Recreational Therapy [CONS] Routine Comment: Evaluate, develop and implement POC Consult to [employer] Consultant [CONS] Routine Reason for SW Consult: Discharge planning Consult to Speech Therapy [CONS] Routine Comment: Evaluate, develop and implement POC Reason for Consult: speech impairment Call Completed: Yes 08/28/18 00:22 Consult to Physical Medicine/Rehab [CONS] Routine Reason for Consult: Evaluate and treat Call Completed: Yes 08/31/18 08:05 Consult to Psychology [CONS] Routine Consulting Provider: Savannah Moon Reason for Consult: Possible depression; adjustment disorder Call Completed: No Discharging clinician: Moe Scott Anticipated date of discharge: 09/08/18 - Constitutional Vitals: Temp Pulse Resp BP Pulse Ox 97.9 F 57 14 156/72 93 09/08/18 07:00 09/08/18 07:00 09/08/18 07:00 09/08/18 07:00 09/08/18 07:00 General appearance: Present: cooperative, A&O X 3, pleasant, no acute distress, answers questions appropriately Exam: garbled speech. with slight facial droop. - Head Head exam: Present: atraumatic, normocephalic - Eye Eye exam: Present: PERRL, conjuntiva pink, sclera anicteric Pupils: Present: PERRL - Neck Neck exam general surgery: Present: supple, trachea midline. Absent: lymphade nopathy - Respiratory Respiratory exam: Present: CTAB. Absent: accessory muscle use, rales, rhonchi, wheezes - Cardiovascular Cardiovascular exam: Present: RRR, +S1, +S2. Absent: diastolic murmur, gallop, rubs, systolic murmur - GI/Abdominal GI/Abdominal exam: Present: normal bowel sounds, soft, no peritoneal signs. Absent: distended, tenderness - Extremities Exam Extremities exam: Present: warm, radial pulses palpable and symmetrical. Absent: calf tenderness, cyanotic, pedal edema - Neurological Exam Neurological exam: Present: CN II-XII intact, oriented X3, no focal deficits. Absent: pronater drift, facial droop, speech deficit - Skin Skin exam: Present: dry, intact - Patient Status Disposition: Home Health Service Condition: Good Functional capacity at discharge: uses cane/walker Overall status at discharge: patient is progressing back to baseline - Discharge Instructions Follow Up With: Amado Patton MD [Primary Care Provider] - - Diet and Activity Activity: as per physical therapy Diet: advance to your usual diet
--- NOTE | 2018-09-08 09:43 | Physician Discharge Referral ---
Addendum entered and electronically signed by Moe Scott MD 09/08/18 10:32: Original Note: Home Health/Hosp Referral Info Transfer to: Home Health Provider in Charge Post Discharge: PCP - Diagnosis (1) CVA (cerebral vascular accident) Priority: Primary Status: Acute (2) Hypertension Priority: Secondary Status: Chronic - Respiratory Orders Smoking Cessation: Smoking cessation has been advised. For more information, call the [place] Tobacco Quit Line at 6-938-YADB-NOW. - Diet/Nutrition Diet/Nutrition Orders: Regular Diet/Nutrition: List: thickened liquids. - Activity Activity Orders: Ambulate, Walker - Services Needed Following services are medically necessary services: Nursing, Physical Therapy, Occupational Therapy, Speech Therapy - Transfer Medications Home Medications: Amlodipine Besylate 5 mg PO DAILY 08/28/18 [History] Aspirin Enteric Coated [Aspirin EC] 81 mg PO DAILY 08/28/18 [History] Atorvastatin Calcium [Lipitor] 20 mg PO DAILY 08/28/18 [History] Ipratropium/Albuterol Neb [Duoneb] 3 ml IH Q6HR 08/28/18 [History] Metoprolol Succinate [Toprol Xl] 100 mg PO DAILY 08/28/18 [History] Oxygen 1 each .ROUTE CONT 08/28/18 [History] Pantoprazole Sodium [Protonix] 40 mg PO DAILY 08/28/18 [History] Multivit/Ca/Min/Fe/FA [Thera M Plus] 1 tab PO DAILY tablet 09/08/18 [Rx] Sertraline [Zoloft] 50 mg PO DAILY tablet 09/08/18 [Rx] Allergies/Adverse Reactions: Allergy/AdvReac Type Severity Reaction Status Date / Time Penicillins [PCN] AdvReac Rash Verified 08/27/18 22:24 Sulfa (Sulfonamide AdvReac Rash Verified 08/27/18 22:24 Antibiotics) Certification: Further, I certify that my clinical findings support that this patient is homebound (i.e. absences from home require considerable and taxing effort and are for medical reasons or nondenominational services or infrequently or short duration when for other reasons) because: Homebound Reason: Patient requires assistance of a person or device to safely leave home, Leaving home requires considerable and taxing effort due to condition Attestation: My signature below is to certify that this patient is under my care and that I, or nurse practitioner, or a physician's nurse's assistant working with me, has a face-to -face encounter with this patient.
--- NOTE | 2018-09-08 11:12 | Rehab Psychology Progress Note ---
Date of Encounter: 09/08/18 Time of Encounter: 09:30 Subjective - Patient Report Patient Report: Pt stated still depressed more due to missing . He is excited to go home and have his niece with him. He initiated conversation and smiled intermittently. Objective - WHODAS Functional Impairment Concentration, Problem-solving, Communication: Mild Social Functioning: Mild - Comments Functional Status Comments: Noted to be functioning better since Zoloft. He was more engaging and even joked. His affect was appropriate. Assessment and Plan - Response to Treatment Response to Treatment: Improved - Prognosis Prognosis: Good - Treatment Plan Changes in Treatment Plan Goals: Zoloft appears to be effective and recommend he continue . He does well with encouragement to attempt conversation/tasks and feeels positive once involved. Treatment Frequency: no outpatient counseling recommended
== END 2018-09-08 11:45 | disposition home health service (06) | DRG 57 ==
LOC: INPGRE 21:53